=== PATIENT | female | born 1955 | race African-American/Black ===

== ENCOUNTER 2022-08-23 17:07 | Inpatient (IN) | payer MEDICARE ==
[~2022-08-23] VITALS: Ht 152.4 cm; Wt 48.0 kg
[2022-08-23] MEDS ORDERED: LORazepam 2 MG/ML VIAL IVP ONE ×2 (17:15→18:00)
[2022-08-23] MEDS ORDERED: SODIUM CHLORIDE 0.9% 100 ML ONE (17:25)
[2022-08-23] MEDS ORDERED: IOHEXOL 350 MG/ML 100 ML VIAL ONE (17:25)
[2022-08-23] MEDS ORDERED: FentaNYL CITRATE PF 100 MCG/2 ML VIAL IVP ONE (18:00)
[2022-08-23 18:45] LABS: COVID AG,FIA SOURCE NASOPHARYNGEAL
[2022-08-23 18:48] LABS: BASOPHILS % (AUTO) 1.1 % (0.0-2.0); EOSINOPHILS % (AUTO) 0 % (1.0-6.0); HEMATOCRIT 33.2 % (36-46); HEMOGLOBIN 11.1 g/dL (12.0-16.0); LYMPHOCYTES # (AUTO) 1.1 K/uL (1.0-4.8); LYMPHOCYTES % (AUTO) 12.3 % (22.0-44.0); MEAN CORPUSCULAR HEMOGLOBIN 33.3 pg (26.0-34.0); MEAN CORPUSCULAR HGB CONC 33.5 G/dL (31.0-37.0); MEAN CORPUSCULAR VOLUME 100 fL (80-100); MONOCYTES # (AUTO) 0.6 K/uL (0.1-1.0); MONOCYTES % (AUTO) 6.3 % (2.0-9.0); NEUTROPHILS % (AUTO) 80.3 % (40.0-70.0); PLATELET COUNT (AUTO) 222 K/uL (150-450); RED BLOOD CELL COUNT(AUTO) 3.33 MIL/uL (4.00-5.20); RED CELL DISTRIBUTION WIDTH 15.2 % (11.5-14.5)
[2022-08-23 18:59] LABS: INR 1.1 (0.9-1.1); PROTHROMBIN TIME 11.8 SEC (9.4-11.6)
[2022-08-23 19:00] LABS: ANION GAP 6 mmol/L (8-16); CALCIUM, TOTAL 9.7 mg/dL (8.8-10.5); CARBON DIOXIDE 30 mmol/L (22-29); CHLORIDE 102 mmol/L (98-107); CREATININE 0.94 mg/dL (0.60-1.30); GLOMERULAR FILTR. RATE CALC > 60 mL/min (>60); GLUCOSE,RANDOM 122 mg/dL (70-110); POTASSIUM 4.5 mmol/L (3.5-5.1); SODIUM SERUM 138 mmol/L (136-145); UREA NITROGEN, BLOOD 21 mg/dL (7-18)
[2022-08-23 19:05] LABS: ALANINE AMINOTRANSFERASE 17 U/L (12-78); ALBUMIN 3.2 g/dL (3.4-5.0); ALKALINE PHOSPHATASE 90 U/L (46-116); ASPARTATE AMINOTRANSFERASE 32 U/L (15-37); BILIRUBIN,TOTAL 0.3 mg/dL (0.1-1.0); TOTAL PROTEIN, SERUM 7.9 g/dL (6.4-8.2)
[2022-08-23] MEDS ORDERED: NiCARDipine HCL 25 MG in SODIUM CHLORIDE 0.9% 240 ML IV PRN (19:15)
[2022-08-23] MEDS ORDERED: ONDANSETRON HCL 4 MG/2 ML VIAL IVP PRN ×2 (19:15→20:30)
[2022-08-23] MEDS ORDERED: ENTE1TAB7 PO (20:24)
[2022-08-23] MEDS ORDERED: LORA-1001 PO (20:24)
[2022-08-23] MEDS ORDERED: LevETIRAcetam 1,000 MG in DEXTROSE 5%-WATER 100 ML IV ONE (20:30)
[2022-08-23 21:00] VITALS: BP 93/48
[2022-08-23] MEDS ORDERED: SODIUM CHLORIDE 0.9% 250 ML IV ONE (21:09)
[2022-08-23] MEDS ORDERED: SODIUM CHLORIDE 0.9% 500 ML IV ONE (21:15)
[2022-08-23] MEDS: ETHYL ALCOHOL 62% ANTISEPTIC NASAL SANITIZER 0.6 ML AMPUL NASAL SCH (21:39)
[2022-08-24] VITALS: BP 122/51
[2022-08-24] MEDS ORDERED: NiCARDipine HCL 25 MG in SODIUM CHLORIDE 0.9% 240 ML IV PRN (01:00)
[2022-08-24] MEDS: LevETIRAcetam 500 MG in DEXTROSE 5%-WATER 100 ML IV SCH ×2 (02:27→14:31)
[2022-08-24 04:00] VITALS: BP 117/50
[2022-08-24] MEDS ORDERED: PNEUMOCOCCAL VACCINE POLYVALENT 0.5 ML VIAL [PPSV23] IM. ONE (04:30)
[2022-08-24] MEDS ORDERED: INFLUENZA VIRUS VACCINE QVS 2022-23 (6MO+)/PF 60 MCG/0.5 ML SYRINGE IM. ONE (04:30)
[2022-08-24 08:00] VITALS: BP 126/52
[2022-08-24 08:16] LABS: BASOPHILS % (AUTO) 0.7 % (0.0-2.0); EOSINOPHILS % (AUTO) 0 % (1.0-6.0); HEMATOCRIT 30.8 % (36-46); HEMOGLOBIN 10.6 g/dL (12.0-16.0); LYMPHOCYTES # (AUTO) 1.1 K/uL (1.0-4.8); MEAN CORPUSCULAR HEMOGLOBIN 33.9 pg (26.0-34.0); MEAN CORPUSCULAR HGB CONC 34.4 G/dL (31.0-37.0); MEAN CORPUSCULAR VOLUME 99 fL (80-100); MONOCYTES # (AUTO) 0.6 K/uL (0.1-1.0); MONOCYTES % (AUTO) 6.7 % (2.0-9.0); NEUTROPHILS # (AUTO) 7.5 K/uL (1.8-7.7); NEUTROPHILS % (AUTO) 80.6 % (40.0-70.0); PLATELET COUNT (AUTO) 183 K/uL (150-450); RED BLOOD CELL COUNT(AUTO) 3.12 MIL/uL (4.00-5.20); RED CELL DISTRIBUTION WIDTH 15.1 % (11.5-14.5)
[2022-08-24 08:30] LABS: ANION GAP 4 mmol/L (8-16); CALCIUM, TOTAL 9.5 mg/dL (8.8-10.5); CARBON DIOXIDE 30 mmol/L (22-29); CHLORIDE 104 mmol/L (98-107); CREATININE 0.88 mg/dL (0.60-1.30); GLUCOSE,RANDOM 115 mg/dL (70-110); POTASSIUM 4.3 mmol/L (3.5-5.1); SODIUM SERUM 138 mmol/L (136-145); UREA NITROGEN, BLOOD 14 mg/dL (7-18)
[2022-08-24 08:33] LABS: GLOMERULAR FILTR. RATE CALC > 60 mL/min (>60)
[2022-08-24] MEDS: PANTOPRAZOLE SODIUM 40 MG/VIAL IVP SCH (09:50)
[2022-08-24] MEDS: ETHYL ALCOHOL 62% ANTISEPTIC NASAL SANITIZER 0.6 ML AMPUL NASAL SCH ×2 (09:50→20:10)
[2022-08-24] MEDS: HALOPERIDOL LACTATE 5 MG/ML VIAL IM PRN ×2 (11:35→23:11)
[2022-08-24 12:00] VITALS: BP 136/55
[2022-08-24] MEDS ORDERED: LORazepam 2 MG/ML VIAL IVP ONE (12:30)
[2022-08-24 12:50] LABS: GLUCOSE,POINT OF CARE 105 MG/DL (70-110)
[2022-08-24 16:00] VITALS: BP 133/72
[2022-08-24 20:00] VITALS: BP 148/96
[2022-08-25] VITALS: BP 142/71
[2022-08-25] MEDS: LevETIRAcetam 500 MG in DEXTROSE 5%-WATER 100 ML IV SCH ×2 (02:30→15:56)
[2022-08-25 04:00] VITALS: BP 156/78
[2022-08-25] MEDS ORDERED: SODIUM CHLORIDE 0.9% 250 ML IV ONE (05:13)
[2022-08-25] MEDS: HALOPERIDOL LACTATE 5 MG/ML VIAL IM PRN ×2 (05:18→15:00)
[2022-08-25 05:49] LABS: BASOPHILS % (AUTO) 0.2 % (0.0-2.0); EOSINOPHILS % (AUTO) 0 % (1.0-6.0); HEMATOCRIT 32.9 % (36-46); HEMOGLOBIN 10.9 g/dL (12.0-16.0); LYMPHOCYTES # (AUTO) 0.8 K/uL (1.0-4.8); LYMPHOCYTES % (AUTO) 4.1 % (22.0-44.0); MEAN CORPUSCULAR HEMOGLOBIN 32.7 pg (26.0-34.0); MEAN CORPUSCULAR VOLUME 99 fL (80-100); MONOCYTES # (AUTO) 1.4 K/uL (0.1-1.0); MONOCYTES % (AUTO) 7.3 % (2.0-9.0); NEUTROPHILS # (AUTO) 16.9 K/uL (1.8-7.7); PLATELET COUNT (AUTO) 166 K/uL (150-450); RED BLOOD CELL COUNT(AUTO) 3.33 MIL/uL (4.00-5.20); RED CELL DISTRIBUTION WIDTH 15.2 % (11.5-14.5)
[2022-08-25 05:58] LABS: NEUTROPHILS % (AUTO) 88.4 % (40.0-70.0)
[2022-08-25 05:59] LABS: HEMOGLOBIN A1C 5.3 % (3.8-5.6)
[2022-08-25 06:01] LABS: ANION GAP 10 mmol/L (8-16); CARBON DIOXIDE 26 mmol/L (22-29); CHLORIDE 105 mmol/L (98-107); CREATININE 0.86 mg/dL (0.60-1.30); GLOMERULAR FILTR. RATE CALC > 60 mL/min (>60); GLUCOSE,RANDOM 146 mg/dL (70-110); PHOSPHORUS 2.2 mg/dL (2.5-4.9); POTASSIUM 3.4 mmol/L (3.5-5.1); SODIUM SERUM 141 mmol/L (136-145); UREA NITROGEN, BLOOD 12 mg/dL (7-18)
[2022-08-25] MEDS ORDERED: DiphenhydrAMINE HCL 50 MG/ML VIAL IVP ONE (06:30)
[2022-08-25 08:00] VITALS: BP 148/66
[2022-08-25] MEDS: ETHYL ALCOHOL 62% ANTISEPTIC NASAL SANITIZER 0.6 ML AMPUL NASAL SCH ×2 (09:10→20:21)
[2022-08-25] MEDS: PANTOPRAZOLE SODIUM 40 MG/VIAL IVP SCH (09:10)
[2022-08-25 12:00] VITALS: BP 152/58
[2022-08-25] MEDS ORDERED: HydrALAZINE HCL 20 MG/ML VIAL IVP PRN (13:45)
[2022-08-25 16:00] VITALS: BP 132/68
[2022-08-25 20:00] VITALS: BP 125/57
[2022-08-26] VITALS: BP 121/58
[2022-08-26] MEDS: HALOPERIDOL LACTATE 5 MG/ML VIAL IM PRN (01:37)
[2022-08-26] MEDS: LevETIRAcetam 500 MG in DEXTROSE 5%-WATER 100 ML IV SCH ×2 (02:32→14:51)
[2022-08-26 04:00] VITALS: BP 138/56
[2022-08-26 06:12] LABS: ANION GAP 5 mmol/L (8-16); CALCIUM, TOTAL 9.8 mg/dL (8.8-10.5); CARBON DIOXIDE 30 mmol/L (22-29); CHLORIDE 104 mmol/L (98-107); CREATININE 0.75 mg/dL (0.60-1.30); GLUCOSE,RANDOM 99 mg/dL (70-110); POTASSIUM 3.3 mmol/L (3.5-5.1); SODIUM SERUM 139 mmol/L (136-145); UREA NITROGEN, BLOOD 13 mg/dL (7-18)
[2022-08-26 06:18] LABS: GLOMERULAR FILTR. RATE CALC > 60 mL/min (>60)
[2022-08-26 06:44] LABS: BASOPHILS % (AUTO) 0.2 % (0.0-2.0); EOSINOPHILS % (AUTO) 0 % (1.0-6.0); HEMATOCRIT 33.1 % (36-46); LYMPHOCYTES # (AUTO) 0.8 K/uL (1.0-4.8); LYMPHOCYTES % (AUTO) 5.9 % (22.0-44.0); MEAN CORPUSCULAR HEMOGLOBIN 33.1 pg (26.0-34.0); MEAN CORPUSCULAR HGB CONC 33.2 G/dL (31.0-37.0); MEAN CORPUSCULAR VOLUME 100 fL (80-100); MONOCYTES # (AUTO) 1.1 K/uL (0.1-1.0); MONOCYTES % (AUTO) 8.4 % (2.0-9.0); NEUTROPHILS # (AUTO) 11.6 K/uL (1.8-7.7); PLATELET COUNT (AUTO) 158 K/uL (150-450); RED BLOOD CELL COUNT(AUTO) 3.33 MIL/uL (4.00-5.20); RED CELL DISTRIBUTION WIDTH 15.6 % (11.5-14.5)
[2022-08-26 06:52] LABS: NEUTROPHILS % (AUTO) 85.5 % (40.0-70.0)
[2022-08-26 07:25] VITALS: BP 124/59
[2022-08-26] MEDS: PANTOPRAZOLE SODIUM 40 MG/VIAL IVP SCH (08:35)
[2022-08-26] MEDS: ETHYL ALCOHOL 62% ANTISEPTIC NASAL SANITIZER 0.6 ML AMPUL NASAL SCH ×2 (08:36→20:47)
[2022-08-26 11:09] VITALS: BP 145/69
[2022-08-26 15:15] VITALS: BP 122/55
[2022-08-26 20:26] VITALS: BP 114/55
[2022-08-27 00:03] VITALS: BP 135/66
[2022-08-27] MEDS: HALOPERIDOL LACTATE 5 MG/ML VIAL IM PRN (00:12)
[2022-08-27] MEDS: LevETIRAcetam 500 MG in DEXTROSE 5%-WATER 100 ML IV SCH ×2 (01:33→13:05)
[2022-08-27 04:35] VITALS: BP 154/52
[2022-08-27 07:42] VITALS: BP 147/75
[2022-08-27 08:01] LABS: BASOPHILS % (AUTO) 0.4 % (0.0-2.0); EOSINOPHILS % (AUTO) 0 % (1.0-6.0); HEMATOCRIT 32.6 % (36-46); HEMOGLOBIN 10.8 g/dL (12.0-16.0); LYMPHOCYTES # (AUTO) 0.5 K/uL (1.0-4.8); LYMPHOCYTES % (AUTO) 3.6 % (22.0-44.0); MEAN CORPUSCULAR HEMOGLOBIN 32.6 pg (26.0-34.0); MEAN CORPUSCULAR HGB CONC 33.2 G/dL (31.0-37.0); MEAN CORPUSCULAR VOLUME 98 fL (80-100); MONOCYTES % (AUTO) 6.7 % (2.0-9.0); NEUTROPHILS % (AUTO) 89.3 % (40.0-70.0); PLATELET COUNT (AUTO) 178 K/uL (150-450); RED BLOOD CELL COUNT(AUTO) 3.33 MIL/uL (4.00-5.20); RED CELL DISTRIBUTION WIDTH 15.7 % (11.5-14.5)
[2022-08-27] MEDS: ETHYL ALCOHOL 62% ANTISEPTIC NASAL SANITIZER 0.6 ML AMPUL NASAL SCH ×2 (09:21→21:22)
[2022-08-27] MEDS: PANTOPRAZOLE SODIUM 40 MG/VIAL IVP SCH (09:21)
[2022-08-27 12:07] VITALS: BP 121/61
[2022-08-27 14:48] VITALS: BP 121/72
[2022-08-27 20:00] VITALS: BP 114/86
[2022-08-27] MEDS ORDERED: ACETAMINOPHEN 650 MG RECTAL SUPPOSITORY PR PRN (21:00)
[2022-08-27] MEDS ORDERED: DEXTROSE 5%-0.45% SODIUM CHL 1,000 ML IV ONE (21:00)
[2022-08-27 21:52] LABS: ANION GAP 10 mmol/L (8-16); CALCIUM, TOTAL 9.8 mg/dL (8.8-10.5); CARBON DIOXIDE 26 mmol/L (22-29); CHLORIDE 106 mmol/L (98-107); CREATININE 0.77 mg/dL (0.60-1.30); GLOMERULAR FILTR. RATE CALC > 60 mL/min (>60); GLUCOSE,RANDOM 119 mg/dL (70-110); POTASSIUM 3.9 mmol/L (3.5-5.1); SODIUM SERUM 142 mmol/L (136-145); UREA NITROGEN, BLOOD 21 mg/dL (7-18)
[2022-08-27] MEDS: CefTRIAXone 1 GM/DEXTROSE 50 ML IV SCH (22:19)
[2022-08-27 23:26] LABS: APPEARANCE,URINE CLEAR (CLEAR); BILIRUBIN,URINE NEGATIVE (NEGATIVE); GLUCOSE, URINE (UA) NEGATIVE (NEGATIVE); KETONES,URINE 40-60 mg/dL (NEGATIVE); LEUKOCYTE ESTERASE ,URINE NEGATIVE (NEGATIVE); NITRATE,URINE NEGATIVE (NEGATIVE); OCCULT BLOOD,URINE MODERATE (NEGATIVE); PROTEIN,URINE 30-70 mg/dL (NEGATIVE); SPECIFIC GRAVITIY, URINE 1.034 (1.003-1.030)
[2022-08-27 23:29] LABS: BACTERIA,URINE Rare /HPF (None Seen); SQUAMOUS EPITHELIAL CELL,UR Rare /LPF (None Seen); WBC,URINE 0-2 /HPF (0-5)
[2022-08-28] VITALS (7 sets, daily range): BP systolic 113–152; BP diastolic 59–80
[2022-08-28] MEDS: LevETIRAcetam 500 MG in DEXTROSE 5%-WATER 100 ML IV SCH ×2 (00:53→13:14)
[2022-08-28] MEDS: HALOPERIDOL LACTATE 5 MG/ML VIAL IM PRN (00:54)
[2022-08-28 06:10] LABS: BASOPHILS % (AUTO) 0.3 % (0.0-2.0); EOSINOPHILS % (AUTO) 0 % (1.0-6.0); HEMATOCRIT 31.7 % (36-46); HEMOGLOBIN 10.5 g/dL (12.0-16.0); LYMPHOCYTES # (AUTO) 0.8 K/uL (1.0-4.8); LYMPHOCYTES % (AUTO) 7.7 % (22.0-44.0); MEAN CORPUSCULAR HEMOGLOBIN 32.8 pg (26.0-34.0); MEAN CORPUSCULAR HGB CONC 32.9 G/dL (31.0-37.0); MEAN CORPUSCULAR VOLUME 100 fL (80-100); MONOCYTES # (AUTO) 1.4 K/uL (0.1-1.0); MONOCYTES % (AUTO) 12.9 % (2.0-9.0); NEUTROPHILS # (AUTO) 8.6 K/uL (1.8-7.7); NEUTROPHILS % (AUTO) 79.1 % (40.0-70.0); PLATELET COUNT (AUTO) 167 K/uL (150-450); RED BLOOD CELL COUNT(AUTO) 3.19 MIL/uL (4.00-5.20); RED CELL DISTRIBUTION WIDTH 15.8 % (11.5-14.5)
[2022-08-28] MEDS: PANTOPRAZOLE SODIUM 40 MG/VIAL IVP SCH (10:03)
[2022-08-28] MEDS: ETHYL ALCOHOL 62% ANTISEPTIC NASAL SANITIZER 0.6 ML AMPUL NASAL SCH ×2 (10:04→21:32)
[2022-08-28] MEDS: DEXTROSE 5%-0.45% SODIUM CHL 1,000 ML IV SCH (10:04)
[2022-08-28] MEDS ORDERED: ACETAMINOPHEN 650 MG RECTAL SUPPOSITORY PR PRN (13:45)
[2022-08-28] MEDS: LORazepam 2 MG/ML VIAL IVP PRN (21:30)
[2022-08-28] MEDS: CefTRIAXone 1 GM/DEXTROSE 50 ML IV SCH (21:59)
[2022-08-29] MEDS: LevETIRAcetam 500 MG in DEXTROSE 5%-WATER 100 ML IV SCH ×2 (02:48→14:23)
[2022-08-29] MEDS: HALOPERIDOL LACTATE 5 MG/ML VIAL IM PRN (02:49)
[2022-08-29 03:57] VITALS: BP 157/78
[2022-08-29] MEDS: DEXTROSE 5%-0.45% SODIUM CHL 1,000 ML IV SCH ×2 (06:06→19:36)
[2022-08-29 07:27] VITALS: BP 122/57
[2022-08-29] MEDS: ETHYL ALCOHOL 62% ANTISEPTIC NASAL SANITIZER 0.6 ML AMPUL NASAL SCH ×2 (08:57→21:21)
[2022-08-29] MEDS: PANTOPRAZOLE SODIUM 40 MG/VIAL IVP SCH (08:58)
[2022-08-29] MEDS: LORazepam 2 MG/ML VIAL IVP PRN (09:02)
[2022-08-29 12:08] VITALS: BP 133/56
[2022-08-29 15:50] VITALS: BP 140/58
[2022-08-29 19:50] VITALS: BP 158/63
[2022-08-29] MEDS: CefTRIAXone 1 GM/DEXTROSE 50 ML IV SCH (22:09)
[2022-08-30] MEDS: LevETIRAcetam 500 MG in DEXTROSE 5%-WATER 100 ML IV SCH ×2 (02:45→13:23)
[2022-08-30 05:19] VITALS: BP 127/54
[2022-08-30 07:25] VITALS: BP 131/48
[2022-08-30] MEDS: PANTOPRAZOLE SODIUM 40 MG/VIAL IVP SCH (08:15)
[2022-08-30] MEDS: LORazepam 2 MG/ML VIAL IVP PRN (08:15)
[2022-08-30] MEDS: ETHYL ALCOHOL 62% ANTISEPTIC NASAL SANITIZER 0.6 ML AMPUL NASAL SCH ×2 (08:16→21:08)
[2022-08-30] MEDS: DEXTROSE 5%-0.45% SODIUM CHL 1,000 ML IV SCH ×2 (10:15→21:14)
[2022-08-30 12:00] VITALS: BP 161/65
[2022-08-30] MEDS: HALOPERIDOL LACTATE 5 MG/ML VIAL IM PRN (13:06)
[2022-08-30 15:00] VITALS: BP 157/72
[2022-08-30 19:30] VITALS: BP 141/66
[2022-08-30] MEDS: CefTRIAXone 1 GM/DEXTROSE 50 ML IV SCH (21:08)
[2022-08-30 23:45] VITALS: BP 127/74
[2022-08-31] MEDS: DEXTROSE 5%-0.45% SODIUM CHL 1,000 ML IV SCH ×2 (00:50→14:22)
[2022-08-31] MEDS: LevETIRAcetam 500 MG in DEXTROSE 5%-WATER 100 ML IV SCH ×2 (02:24→13:09)
[2022-08-31 07:55] VITALS: BP 123/85
[2022-08-31 08:06] LABS: LDL CHOLESTEROL DIRECT 103 mg/dL (0-99)
[2022-08-31] MEDS: ETHYL ALCOHOL 62% ANTISEPTIC NASAL SANITIZER 0.6 ML AMPUL NASAL SCH ×2 (08:57→21:14)
[2022-08-31] MEDS: PANTOPRAZOLE SODIUM 40 MG/VIAL IVP SCH (08:58)
[2022-08-31 11:50] VITALS: BP 131/83
[2022-08-31 15:49] VITALS: BP 158/62
[2022-08-31] MEDS: CefTRIAXone 1 GM/DEXTROSE 50 ML IV SCH (21:14)
[2022-09-01 00:18] VITALS: BP 129/80
[2022-09-01] MEDS: LevETIRAcetam 500 MG in DEXTROSE 5%-WATER 100 ML IV SCH ×2 (01:13→13:46)
[2022-09-01 04:13] VITALS: BP 120/83
[2022-09-01] MEDS: PANTOPRAZOLE SODIUM 40 MG/VIAL IVP SCH (07:37)
[2022-09-01 07:39] VITALS: BP 120/63
[2022-09-01] MEDS: ETHYL ALCOHOL 62% ANTISEPTIC NASAL SANITIZER 0.6 ML AMPUL NASAL SCH ×2 (07:42→21:21)
[2022-09-01 10:49] VITALS: BP 123/91
[2022-09-01] MEDS ORDERED: ETHYL ALCOHOL 62% ANTISEPTIC NASAL SANITIZER 0.6 ML AMPUL NASAL ONE (14:00)
[2022-09-01] MEDS ORDERED: SODIUM CHLORIDE 0.9% 1,000 ML IV ONE (14:00)
[2022-09-01] MEDS ORDERED: CeFAZolin 1 GM/DEXTROSE 50 ML IV ONE (14:30)
[2022-09-01 15:55] VITALS: BP 136/62
[2022-09-01] MEDS: DEXTROSE 5%-0.45% SODIUM CHL 1,000 ML IV SCH (16:47)
[2022-09-01 19:34] VITALS: BP 146/88
[2022-09-01] MEDS: CefTRIAXone 1 GM/DEXTROSE 50 ML IV SCH (21:24)
[2022-09-02] VITALS: BP 137/85
[2022-09-02] MEDS: LevETIRAcetam 500 MG in DEXTROSE 5%-WATER 100 ML IV SCH ×2 (02:05→14:35)
[2022-09-02 04:00] VITALS: BP 128/81
[2022-09-02 07:56] VITALS: BP 129/54
[2022-09-02] MEDS: ETHYL ALCOHOL 62% ANTISEPTIC NASAL SANITIZER 0.6 ML AMPUL NASAL SCH ×2 (08:50→22:33)
[2022-09-02] MEDS: DEXTROSE 5%-0.45% SODIUM CHL 1,000 ML IV SCH ×2 (08:50→23:26)
[2022-09-02] MEDS: PANTOPRAZOLE SODIUM 40 MG/VIAL IVP SCH (08:50)
[2022-09-02] MEDS: HYDROGEN PEROXIDE 473 ML SOLUTION TP SCH (08:51)
[2022-09-02] MEDS: POVIDONE-IODINE 10% 120 ML SOLUTION TP SCH (08:51)
[2022-09-02] MEDS ORDERED: SODIUM CHLORIDE 0.9% 1,000 ML IV ONE (09:32)
[2022-09-02] MEDS ORDERED: PROPOFOL 1% 20 ML VIAL IVP ONE (12:00)
[2022-09-02 12:12] VITALS: BP 110/47
[2022-09-02 15:45] VITALS: BP 125/86
[2022-09-02 19:58] VITALS: BP 122/61
[2022-09-02] MEDS: CefTRIAXone 1 GM/DEXTROSE 50 ML IV SCH (20:36)
[2022-09-02] MEDS: ACETAMINOPHEN 325 MG TABLET PO PRN (20:36)
[2022-09-02] MEDS: LORazepam 2 MG/ML VIAL IVP PRN (20:37)
[2022-09-03] VITALS (7 sets, daily range): BP systolic 104–135; BP diastolic 54–76
[2022-09-03] MEDS: LevETIRAcetam 500 MG in DEXTROSE 5%-WATER 100 ML IV SCH ×2 (02:02→14:01)
[2022-09-03 06:18] LABS: ANION GAP 2 mmol/L (8-16); CALCIUM, TOTAL 8.9 mg/dL (8.8-10.5); CARBON DIOXIDE 32 mmol/L (22-29); CHLORIDE 100 mmol/L (98-107); CREATININE 0.55 mg/dL (0.60-1.30); GLUCOSE,RANDOM 109 mg/dL (70-110); SODIUM SERUM 134 mmol/L (136-145); UREA NITROGEN, BLOOD 7 mg/dL (7-18)
[2022-09-03 06:40] LABS: GLOMERULAR FILTR. RATE CALC > 60 mL/min (>60); POTASSIUM 2.8 mmol/L (3.5-5.1)
[2022-09-03] MEDS: POTASSIUM CHL 10 MEQ/WATER 50 ML IV SCH ×4 (06:57→10:47)
[2022-09-03] MEDS ORDERED: POTASSIUM CHLORIDE 10% 40 MEQ/30 ML LIQUID UDCUP PEG ONE (07:00)
[2022-09-03] MEDS: PANTOPRAZOLE SODIUM 40 MG/VIAL IVP SCH (08:14)
[2022-09-03] MEDS: POVIDONE-IODINE 10% 120 ML SOLUTION TP SCH (08:14)
[2022-09-03] MEDS: ETHYL ALCOHOL 62% ANTISEPTIC NASAL SANITIZER 0.6 ML AMPUL NASAL SCH ×2 (08:14→21:18)
[2022-09-03] MEDS: HYDROGEN PEROXIDE 473 ML SOLUTION TP SCH (08:14)
[2022-09-03] MEDS: LORazepam 2 MG/ML VIAL IVP PRN (08:15)
[2022-09-03] MEDS: DEXTROSE 5%-0.45% SODIUM CHL 1,000 ML IV SCH (14:01)
[2022-09-03] MEDS: CefTRIAXone 1 GM/DEXTROSE 50 ML IV SCH (21:18)
[2022-09-04 00:30] VITALS: BP 104/66
[2022-09-04] MEDS: LORazepam 2 MG/ML VIAL IVP PRN ×2 (02:04→15:29)
[2022-09-04] MEDS: LevETIRAcetam 500 MG in DEXTROSE 5%-WATER 100 ML IV SCH ×2 (02:04→15:21)
[2022-09-04 04:42] VITALS: BP 109/58
[2022-09-04] MEDS: DEXTROSE 5%-0.45% SODIUM CHL 1,000 ML IV SCH ×2 (05:04→16:25)
[2022-09-04 07:38] VITALS: BP 128/57
[2022-09-04] MEDS: PANTOPRAZOLE SODIUM 40 MG/VIAL IVP SCH (08:39)
[2022-09-04] MEDS: ETHYL ALCOHOL 62% ANTISEPTIC NASAL SANITIZER 0.6 ML AMPUL NASAL SCH ×2 (08:40→20:36)
[2022-09-04] MEDS: HYDROGEN PEROXIDE 473 ML SOLUTION TP SCH (08:41)
[2022-09-04] MEDS: POVIDONE-IODINE 10% 120 ML SOLUTION TP SCH (08:41)
[2022-09-04 11:51] VITALS: BP 119/60
[2022-09-04 15:11] VITALS: BP 104/57
[2022-09-04 20:07] VITALS: BP 106/59
[2022-09-04] MEDS: ACETAMINOPHEN 325 MG TABLET PO PRN (20:36)
[2022-09-04] MEDS: CefTRIAXone 1 GM/DEXTROSE 50 ML IV SCH (20:36)
[2022-09-04] MEDS ORDERED: IPRATROPIUM BROMIDE 0.5 MG/2.5 ML NEB SOLUTION NEB ONE (21:15)
[2022-09-04] MEDS ORDERED: ALBUTEROL SULFATE 2.5 MG/0.5 ML NEB SOLUTION NEB ONE (21:15)
[2022-09-05] MEDS: LORazepam 2 MG/ML VIAL IVP PRN (00:07)
[2022-09-05 00:40] VITALS: BP 106/64
[2022-09-05] MEDS: LevETIRAcetam 500 MG in DEXTROSE 5%-WATER 100 ML IV SCH ×2 (01:01→15:07)
[2022-09-05] MEDS: HALOPERIDOL LACTATE 5 MG/ML VIAL IM PRN (02:26)
[2022-09-05 04:49] VITALS: BP 100/51
[2022-09-05] MEDS: DEXTROSE 5%-0.45% SODIUM CHL 1,000 ML IV SCH ×2 (06:02→20:02)
[2022-09-05 08:12] VITALS: BP 117/58
[2022-09-05] MEDS: ETHYL ALCOHOL 62% ANTISEPTIC NASAL SANITIZER 0.6 ML AMPUL NASAL SCH ×2 (10:43→20:03)
[2022-09-05] MEDS: PANTOPRAZOLE SODIUM 40 MG/VIAL IVP SCH (10:43)
[2022-09-05] MEDS: HYDROGEN PEROXIDE 473 ML SOLUTION TP SCH (10:44)
[2022-09-05] MEDS: POVIDONE-IODINE 10% 120 ML SOLUTION TP SCH (10:44)
[2022-09-05 12:05] VITALS: BP 139/66
[2022-09-05 16:06] VITALS: BP 142/66
[2022-09-05 19:40] VITALS: BP 141/81
[2022-09-05] MEDS: CefTRIAXone 1 GM/DEXTROSE 50 ML IV SCH (21:05)
[2022-09-06] MEDS: LevETIRAcetam 500 MG in DEXTROSE 5%-WATER 100 ML IV SCH ×2 (01:41→15:47)
[2022-09-06 04:15] VITALS: BP 130/81
[2022-09-06 06:37] LABS: BASOPHILS % (AUTO) 0.5 % (0.0-2.0); EOSINOPHILS % (AUTO) 0.5 % (1.0-6.0); HEMATOCRIT 27.7 % (36-46); HEMOGLOBIN 9.3 g/dL (12.0-16.0); LYMPHOCYTES # (AUTO) 1.2 K/uL (1.0-4.8); LYMPHOCYTES % (AUTO) 15.3 % (22.0-44.0); MEAN CORPUSCULAR HEMOGLOBIN 32.8 pg (26.0-34.0); MEAN CORPUSCULAR HGB CONC 33.8 G/dL (31.0-37.0); MEAN CORPUSCULAR VOLUME 97 fL (80-100); MONOCYTES # (AUTO) 0.7 K/uL (0.1-1.0); MONOCYTES % (AUTO) 8.5 % (2.0-9.0); NEUTROPHILS # (AUTO) 5.9 K/uL (1.8-7.7); NEUTROPHILS % (AUTO) 75.2 % (40.0-70.0); PLATELET COUNT (AUTO) 203 K/uL (150-450); RED BLOOD CELL COUNT(AUTO) 2.85 MIL/uL (4.00-5.20); RED CELL DISTRIBUTION WIDTH 15.7 % (11.5-14.5)
[2022-09-06 06:51] LABS: ALANINE AMINOTRANSFERASE 27 U/L (12-78); ALBUMIN 1.8 g/dL (3.4-5.0); ALKALINE PHOSPHATASE 89 U/L (46-116); ANION GAP 4 mmol/L (8-16); ASPARTATE AMINOTRANSFERASE 25 U/L (15-37); BILIRUBIN,TOTAL 0.2 mg/dL (0.1-1.0); CALCIUM, TOTAL 8.9 mg/dL (8.8-10.5); CARBON DIOXIDE 30 mmol/L (22-29); CHLORIDE 105 mmol/L (98-107); CREATININE 0.61 mg/dL (0.60-1.30); GLUCOSE,RANDOM 128 mg/dL (70-110); SODIUM SERUM 139 mmol/L (136-145); TOTAL PROTEIN, SERUM 6.3 g/dL (6.4-8.2); UREA NITROGEN, BLOOD 10 mg/dL (7-18)
[2022-09-06 06:52] LABS: GLOMERULAR FILTR. RATE CALC > 60 mL/min (>60)
[2022-09-06 07:24] VITALS: BP 132/67
[2022-09-06] MEDS: DEXTROSE 5%-0.45% SODIUM CHL 1,000 ML IV SCH ×2 (08:48→22:53)
[2022-09-06] MEDS: ETHYL ALCOHOL 62% ANTISEPTIC NASAL SANITIZER 0.6 ML AMPUL NASAL SCH ×2 (08:48→19:44)
[2022-09-06] MEDS: PANTOPRAZOLE SODIUM 40 MG/VIAL IVP SCH (08:48)
[2022-09-06] MEDS: POVIDONE-IODINE 10% 120 ML SOLUTION TP SCH (08:48)
[2022-09-06] MEDS: HYDROGEN PEROXIDE 473 ML SOLUTION TP SCH (08:49)
[2022-09-06 15:14] VITALS: BP 147/93
[2022-09-06] MEDS: LORazepam 2 MG/ML VIAL IVP PRN (19:45)
[2022-09-06 20:23] VITALS: BP 176/73
[2022-09-06 20:51] VITALS: BP 159/65
[2022-09-06] MEDS: CefTRIAXone 1 GM/DEXTROSE 50 ML IV SCH (22:52)
[2022-09-07] MEDS: LevETIRAcetam 500 MG in DEXTROSE 5%-WATER 100 ML IV SCH ×2 (01:15→14:04)
[2022-09-07 04:04] VITALS: BP 150/52
[2022-09-07 07:28] VITALS: BP 118/48
[2022-09-07] MEDS: HYDROGEN PEROXIDE 473 ML SOLUTION TP SCH (08:44)
[2022-09-07] MEDS: POVIDONE-IODINE 10% 120 ML SOLUTION TP SCH (08:44)
[2022-09-07] MEDS: PANTOPRAZOLE SODIUM 40 MG/VIAL IVP SCH (08:44)
[2022-09-07] MEDS: ETHYL ALCOHOL 62% ANTISEPTIC NASAL SANITIZER 0.6 ML AMPUL NASAL SCH ×2 (08:44→20:55)
[2022-09-07 08:51] LABS: HEMOGLOBIN 8.4 g/dL (12.0-16.0); MEAN CORPUSCULAR HGB CONC 34.1 G/dL (31.0-37.0); MONOCYTES # (AUTO) 0.9 K/uL (0.1-1.0); RED BLOOD CELL COUNT(AUTO) 2.56 MIL/uL (4.00-5.20)
[2022-09-07 09:05] LABS: ALANINE AMINOTRANSFERASE 23 U/L (12-78); ALBUMIN 1.7 g/dL (3.4-5.0); ALKALINE PHOSPHATASE 79 U/L (46-116); ANION GAP 2 mmol/L (8-16); ASPARTATE AMINOTRANSFERASE 25 U/L (15-37); BILIRUBIN,TOTAL 0.2 mg/dL (0.1-1.0); CALCIUM, TOTAL 8.6 mg/dL (8.8-10.5); CARBON DIOXIDE 30 mmol/L (22-29); CHLORIDE 101 mmol/L (98-107); CREATININE 0.58 mg/dL (0.60-1.30); GLOMERULAR FILTR. RATE CALC > 60 mL/min (>60); GLUCOSE,RANDOM 139 mg/dL (70-110); SODIUM SERUM 133 mmol/L (136-145); TOTAL PROTEIN, SERUM 5.7 g/dL (6.4-8.2); UREA NITROGEN, BLOOD 11 mg/dL (7-18)
[2022-09-07 09:06] LABS: BASOPHILS % (AUTO) 0.4 % (0.0-2.0); EOSINOPHILS % (AUTO) 0.2 % (1.0-6.0); HEMATOCRIT 24.7 % (36-46); LYMPHOCYTES % (AUTO) 12.3 % (22.0-44.0); MEAN CORPUSCULAR VOLUME 97 fL (80-100); MONOCYTES % (AUTO) 10.9 % (2.0-9.0); NEUTROPHILS % (AUTO) 76.2 % (40.0-70.0); RED CELL DISTRIBUTION WIDTH 16.1 % (11.5-14.5)
[2022-09-07 09:32] LABS: PLATELET COUNT (AUTO) 184 K/uL (150-450)
[2022-09-07] MEDS: HALOPERIDOL 5 MG TABLET PO SCH ×2 (10:26→20:57)
[2022-09-07 15:09] VITALS: BP 128/97
[2022-09-07] MEDS: DEXTROSE 5%-0.45% SODIUM CHL 1,000 ML IV SCH (17:08)
[2022-09-07 20:32] VITALS: BP 177/84
[2022-09-07 21:57] VITALS: BP 155/66
[2022-09-07] MEDS: CefTRIAXone 1 GM/DEXTROSE 50 ML IV SCH (22:15)
[2022-09-08] MEDS: LevETIRAcetam 500 MG in DEXTROSE 5%-WATER 100 ML IV SCH ×2 (02:51→14:26)
[2022-09-08] MEDS: ACETAMINOPHEN 325 MG TABLET PO PRN (04:42)
[2022-09-08 04:49] VITALS: BP 104/69
[2022-09-08 08:05] VITALS: BP 99/58
[2022-09-08] MEDS: POVIDONE-IODINE 10% 120 ML SOLUTION TP SCH (08:52)
[2022-09-08] MEDS: ETHYL ALCOHOL 62% ANTISEPTIC NASAL SANITIZER 0.6 ML AMPUL NASAL SCH ×2 (08:52→21:04)
[2022-09-08] MEDS: HALOPERIDOL 5 MG TABLET PO SCH ×2 (08:52→21:04)
[2022-09-08] MEDS: PANTOPRAZOLE SODIUM 40 MG/VIAL IVP SCH (08:52)
[2022-09-08] MEDS: HYDROGEN PEROXIDE 473 ML SOLUTION TP SCH (08:52)
[2022-09-08] MEDS: DEXTROSE 5%-0.45% SODIUM CHL 1,000 ML IV SCH (14:26)
[2022-09-08 15:24] VITALS: BP 123/65
[2022-09-08 20:10] VITALS: BP 114/58
[2022-09-08] MEDS: CefTRIAXone 1 GM/DEXTROSE 50 ML IV SCH (21:06)
[2022-09-09] MEDS: LevETIRAcetam 500 MG in DEXTROSE 5%-WATER 100 ML IV SCH ×2 (01:47→13:24)
[2022-09-09] MEDS: DEXTROSE 5%-0.45% SODIUM CHL 1,000 ML IV SCH ×2 (03:43→16:58)
[2022-09-09 05:00] VITALS: BP 116/62
[2022-09-09 07:49] VITALS: BP 128/71
[2022-09-09] MEDS: HYDROGEN PEROXIDE 473 ML SOLUTION TP SCH (08:16)
[2022-09-09] MEDS: HALOPERIDOL 5 MG TABLET PO SCH ×2 (08:16→20:29)
[2022-09-09] MEDS: ETHYL ALCOHOL 62% ANTISEPTIC NASAL SANITIZER 0.6 ML AMPUL NASAL SCH ×2 (08:16→20:29)
[2022-09-09] MEDS: PANTOPRAZOLE SODIUM 40 MG/VIAL IVP SCH (08:16)
[2022-09-09] MEDS: POVIDONE-IODINE 10% 120 ML SOLUTION TP SCH (08:16)
[2022-09-09 15:34] VITALS: BP 133/67
[2022-09-09 20:21] VITALS: BP 138/51
[2022-09-09] MEDS: CefTRIAXone 1 GM/DEXTROSE 50 ML IV SCH (21:02)
[2022-09-10] MEDS: LevETIRAcetam 500 MG in DEXTROSE 5%-WATER 100 ML IV SCH ×2 (01:12→14:49)
[2022-09-10] MEDS: DEXTROSE 5%-0.45% SODIUM CHL 1,000 ML IV SCH (04:47)
[2022-09-10 05:00] VITALS: BP 128/70
[2022-09-10 08:11] VITALS: BP 93/57
[2022-09-10] MEDS: PANTOPRAZOLE SODIUM 40 MG/VIAL IVP SCH (10:04)
[2022-09-10] MEDS: ETHYL ALCOHOL 62% ANTISEPTIC NASAL SANITIZER 0.6 ML AMPUL NASAL SCH ×2 (10:04→20:21)
[2022-09-10] MEDS: HYDROGEN PEROXIDE 473 ML SOLUTION TP SCH (10:04)
[2022-09-10] MEDS: POVIDONE-IODINE 10% 120 ML SOLUTION TP SCH (10:04)
[2022-09-10] MEDS: HALOPERIDOL 5 MG TABLET PO SCH ×2 (10:04→20:20)
[2022-09-10] MEDS: LORazepam 2 MG/ML VIAL IVP PRN (10:10)
[2022-09-10 15:52] VITALS: BP 97/53
[2022-09-10 19:40] VITALS: BP 115/64
[2022-09-10] MEDS: CefTRIAXone 1 GM/DEXTROSE 50 ML IV SCH (21:25)
[2022-09-11] MEDS: LevETIRAcetam 500 MG in DEXTROSE 5%-WATER 100 ML IV SCH ×2 (02:09→13:35)
[2022-09-11 04:00] VITALS: BP 106/53
[2022-09-11] MEDS: DEXTROSE 5%-0.45% SODIUM CHL 1,000 ML IV SCH ×3 (05:45→20:30)
[2022-09-11 07:43] VITALS: BP 129/79
[2022-09-11] MEDS: PANTOPRAZOLE SODIUM 40 MG/VIAL IVP SCH (09:42)
[2022-09-11] MEDS: HALOPERIDOL 5 MG TABLET PO SCH ×2 (09:42→20:23)
[2022-09-11] MEDS: ETHYL ALCOHOL 62% ANTISEPTIC NASAL SANITIZER 0.6 ML AMPUL NASAL SCH ×2 (09:42→20:23)
[2022-09-11] MEDS: HYDROGEN PEROXIDE 473 ML SOLUTION TP SCH (09:42)
[2022-09-11] MEDS: POVIDONE-IODINE 10% 120 ML SOLUTION TP SCH (09:43)
[2022-09-11 15:00] VITALS: BP 117/52
[2022-09-11 20:05] LABS: LYMPHOCYTES # (AUTO) 0.9 K/uL (1.0-4.8); MONOCYTES # (AUTO) 0.4 K/uL (0.1-1.0); NEUTROPHILS # (AUTO) 0.8 K/uL (1.8-7.7); PLATELET COUNT (AUTO) 177 K/uL (150-450)
[2022-09-11 20:12] VITALS: BP 106/73
[2022-09-11 20:13] LABS: ANION GAP 2 mmol/L (8-16); BASOPHILS % (AUTO) 1.1 % (0.0-2.0); CALCIUM, TOTAL 8.7 mg/dL (8.8-10.5); CARBON DIOXIDE 32 mmol/L (22-29); CHLORIDE 104 mmol/L (98-107); CREATININE 0.66 mg/dL (0.60-1.30); EOSINOPHILS % (AUTO) 0.6 % (1.0-6.0); GLOMERULAR FILTR. RATE CALC > 60 mL/min (>60); GLUCOSE,RANDOM 109 mg/dL (70-110); HEMATOCRIT 26.3 % (36-46); HEMOGLOBIN 8.8 g/dL (12.0-16.0); LYMPHOCYTES % (AUTO) 42.1 % (22.0-44.0); MEAN CORPUSCULAR HEMOGLOBIN 32.1 pg (26.0-34.0); MEAN CORPUSCULAR HGB CONC 33.6 G/dL (31.0-37.0); MEAN CORPUSCULAR VOLUME 96 fL (80-100); MONOCYTES % (AUTO) 19.1 % (2.0-9.0); NEUTROPHILS % (AUTO) 37.1 % (40.0-70.0); POTASSIUM 4.7 mmol/L (3.5-5.1); RED BLOOD CELL COUNT(AUTO) 2.75 MIL/uL (4.00-5.20); RED CELL DISTRIBUTION WIDTH 16.5 % (11.5-14.5); SODIUM SERUM 138 mmol/L (136-145); UREA NITROGEN, BLOOD 14 mg/dL (7-18)
[2022-09-11] MEDS: CefTRIAXone 1 GM/DEXTROSE 50 ML IV SCH (22:12)
[2022-09-12] MEDS: LevETIRAcetam 500 MG in DEXTROSE 5%-WATER 100 ML IV SCH ×2 (02:18→14:42)
[2022-09-12 05:24] VITALS: BP 130/69
[2022-09-12 08:00] VITALS: BP 125/93
[2022-09-12] MEDS: HALOPERIDOL 5 MG TABLET PO SCH ×2 (08:50→20:40)
[2022-09-12] MEDS: ETHYL ALCOHOL 62% ANTISEPTIC NASAL SANITIZER 0.6 ML AMPUL NASAL SCH ×2 (08:50→20:41)
[2022-09-12] MEDS: PANTOPRAZOLE SODIUM 40 MG/VIAL IVP SCH (08:50)
[2022-09-12] MEDS: POVIDONE-IODINE 10% 120 ML SOLUTION TP SCH (08:51)
[2022-09-12] MEDS: HYDROGEN PEROXIDE 473 ML SOLUTION TP SCH (08:51)
[2022-09-12] MEDS: DEXTROSE 5%-0.45% SODIUM CHL 1,000 ML IV SCH (11:01)
[2022-09-12 15:12] VITALS: BP 122/60
[2022-09-12 20:22] VITALS: BP 109/72
[2022-09-12] MEDS: CefTRIAXone 1 GM/DEXTROSE 50 ML IV SCH (22:16)
[2022-09-13] MEDS: DEXTROSE 5%-0.45% SODIUM CHL 1,000 ML IV SCH ×2 (00:48→14:35)
[2022-09-13] MEDS: LevETIRAcetam 500 MG in DEXTROSE 5%-WATER 100 ML IV SCH ×2 (02:31→14:35)
[2022-09-13] MEDS: LORazepam 2 MG/ML VIAL IVP PRN ×2 (03:42→16:23)
[2022-09-13 04:27] VITALS: BP 119/63
[2022-09-13 07:15] VITALS: BP 115/55
[2022-09-13] MEDS: HALOPERIDOL 5 MG TABLET PO SCH ×2 (08:24→20:54)
[2022-09-13] MEDS: PANTOPRAZOLE SODIUM 40 MG/VIAL IVP SCH (08:24)
[2022-09-13] MEDS: POVIDONE-IODINE 10% 120 ML SOLUTION TP SCH (08:25)
[2022-09-13] MEDS: ETHYL ALCOHOL 62% ANTISEPTIC NASAL SANITIZER 0.6 ML AMPUL NASAL SCH ×2 (08:25→20:53)
[2022-09-13] MEDS: HYDROGEN PEROXIDE 473 ML SOLUTION TP SCH (08:25)
[2022-09-13 15:34] VITALS: BP 94/53
[2022-09-13 19:35] VITALS: BP 124/76
[2022-09-13] MEDS: CefTRIAXone 1 GM/DEXTROSE 50 ML IV SCH (20:56)
[2022-09-13 22:02] LABS: COVID AG,FIA SOURCE NASAL SWAB
[2022-09-14] MEDS: LevETIRAcetam 500 MG in DEXTROSE 5%-WATER 100 ML IV SCH ×2 (01:17→13:58)
[2022-09-14 04:00] VITALS: BP 153/77
[2022-09-14] MEDS: DEXTROSE 5%-0.45% SODIUM CHL 1,000 ML IV SCH ×2 (04:59→20:18)
[2022-09-14 08:09] VITALS: BP 145/83
[2022-09-14] MEDS: HALOPERIDOL 5 MG TABLET PO SCH ×2 (09:00→20:19)
[2022-09-14] MEDS: POVIDONE-IODINE 10% 120 ML SOLUTION TP SCH (09:00)
[2022-09-14] MEDS: ETHYL ALCOHOL 62% ANTISEPTIC NASAL SANITIZER 0.6 ML AMPUL NASAL SCH ×2 (09:00→20:18)
[2022-09-14] MEDS: HYDROGEN PEROXIDE 473 ML SOLUTION TP SCH (09:00)
[2022-09-14] MEDS: PANTOPRAZOLE SODIUM 40 MG/VIAL IVP SCH (09:00)
[2022-09-14 20:28] VITALS: BP 151/69
[2022-09-14] MEDS: CefTRIAXone 1 GM/DEXTROSE 50 ML IV SCH (21:36)
[2022-09-14] MEDS: LORazepam 2 MG/ML VIAL IVP PRN (21:42)
[2022-09-15] MEDS: LevETIRAcetam 500 MG in DEXTROSE 5%-WATER 100 ML IV SCH ×2 (03:28→14:26)
[2022-09-15 04:44] VITALS: BP 143/82
[2022-09-15 09:17] VITALS: BP 112/66
[2022-09-15] MEDS: PANTOPRAZOLE SODIUM 40 MG/VIAL IVP SCH (09:26)
[2022-09-15] MEDS: HALOPERIDOL 5 MG TABLET PO SCH ×2 (09:28→20:31)
[2022-09-15] MEDS ORDERED: SODIUM CHLORIDE 0.9% 0 ML ONE (13:52)
[2022-09-15] MEDS: DEXTROSE 5%-0.45% SODIUM CHL 1,000 ML IV SCH (14:27)
[2022-09-15] MEDS: ETHYL ALCOHOL 62% ANTISEPTIC NASAL SANITIZER 0.6 ML AMPUL NASAL SCH ×2 (14:28→20:30)
[2022-09-15 16:41] VITALS: BP 154/87
[2022-09-15 20:22] VITALS: BP 146/88
[2022-09-15] MEDS: CefTRIAXone 1 GM/DEXTROSE 50 ML IV SCH (23:58)
[2022-09-16] MEDS: LevETIRAcetam 500 MG in DEXTROSE 5%-WATER 100 ML IV SCH (01:24)
[2022-09-16] MEDS: DEXTROSE 5%-0.45% SODIUM CHL 1,000 ML IV SCH (03:51)
[2022-09-16 04:11] VITALS: BP 141/79
[2022-09-16] MEDS: HALOPERIDOL 5 MG TABLET PO SCH (09:09)
[2022-09-16] MEDS: HYDROGEN PEROXIDE 473 ML SOLUTION TP SCH ×2 (09:09→10:03)
[2022-09-16] MEDS: PANTOPRAZOLE SODIUM 40 MG/VIAL IVP SCH (09:09)
[2022-09-16] MEDS: POVIDONE-IODINE 10% 120 ML SOLUTION TP SCH ×2 (09:10→10:03)
[2022-09-16] MEDS: ETHYL ALCOHOL 62% ANTISEPTIC NASAL SANITIZER 0.6 ML AMPUL NASAL SCH (09:11)
[2022-09-16] MEDS ORDERED: HALO5TAB23 PO (14:07)
[2022-09-16] MEDS ORDERED: PANT-31 PO (14:08)
[2022-09-16] MEDS ORDERED: LEVE500T20 PO (14:08)
[2022-09-16] MEDS ORDERED: ACET-2247 PO (14:09)
[2022-09-16 15:33] VITALS: BP 127/72
== END 2022-09-16 15:50 | DRG 64 ==
LOC: EMS 17:07 → ICU 20:00 → 5S 08-26 07:00 → 6S 09-05 18:48 → 6N 09-14 12:11
PROVIDERS: ADMIT Internal Medicine; ATTEND Internal Medicine
PROC: 0DH64UZ Insertion of Feeding Device into Stomach, Percutaneous Endoscopic Approach (ICD-10-PCS; principal; 2022-09-01 14:15)
DX: I61.9 Nontraumatic intracerebral hemorrhage, unspecified (principal); E43 Unspecified severe protein-calorie malnutrition; U07.1 COVID-19; I16.1 Hypertensive emergency; R65.10 Systemic inflammatory response syndrome (SIRS) of non-infectious origin without acute organ dysfunction; G81.94 Hemiplegia, unspecified affecting left nondominant side; E87.6 Hypokalemia; D64.9 Anemia, unspecified; R13.10 Dysphagia, unspecified; Z20.822 Contact with and (suspected) exposure to COVID-19; W18.39XA Other fall on same level, initial encounter; G47.00 Insomnia, unspecified; R62.50 Unspecified lack of expected normal physiological development in childhood; Z68.20 Body mass index [BMI] 20.0-20.9, adult; Z79.899 Other long term (current) drug therapy; Y93.89 Activity, other specified; Y92.89 Other specified places as the place of occurrence of the external cause; Y99.8 Other external cause status
CPT/HCPCS: 70450; 70496; 71045; 80048; 80053; 81001; 82962; 83036; 83721; 83735; 84100; 84132; 84484; 85025; 85610; 87040; 87081; 87086; 87186; 92526; 92610; 93005; 93971; 94640; 99291; C9113; G0378; J0690; J0696; J0712; J1200; J1630; J2060; J2704; J3010; J3480; J3490; J7030; J7040; J7050; J7060; Q9967; 36415-L1; 36415-TC; J7613; Z7610